=== PATIENT | female | born 1985 | race Caucasian/White ===

== ENCOUNTER 2017-08-25 10:10 | Inpatient (IN) | payer MEDICAID ==
[2017-08-25] MEDS ORDERED: ceFAZolin IV 2 gm in Dextrose 1 GM/50 ML BAG IVPB ONE (10:49)
[2017-08-25] MEDS ORDERED: Lactated Ringer's 1,000 ML IV SCH (11:00)
[2017-08-25] MEDS ORDERED: Oxytocin 30 UNIT 30 UNITS/500 ML BAG IV SCH (11:00)
[2017-08-25 11:49] LABS: BASO % 0.3 % (0.0-2.0); EOS # 0.1 K/uL (0.0-0.7); HEMOGLOBIN 11.6 g/dL (11.0-16.0); LYMPH # 1.9 K/uL (1.0-4.3); LYMPH % 16.5 % (20.0-40.0); MEAN CORPUSCULAR HEMOGLOBIN 28.4 pg (27.0-31.0); MEAN PLATELET VOLUME 11.4 fL (7.2-11.7); MONO # 0.6 K/uL (0.0-0.8); MONO % 5.5 % (0.0-10.0); NEUT # 8.8 K/uL (1.8-7.0); NEUT % 76.7 % (50.0-75.0); RBC 4.09 Mil/uL (3.80-5.20); RED CELL DISTRIBUTION WIDTH 13.9 % (11.5-14.5); WHITE BLOOD COUNT 11.4 K/uL (4.8-10.8)
[2017-08-25 11:50] LABS: MEAN CELL VOLUME 83.5 fL (81.0-99.0)
[2017-08-25 11:55] LABS: SQUAMOUS EPITHIAL 11 /hpf (0-5); URINE BACTERIA OCC (<OCC); URINE BILIRUBIN NEGATIVE (NEGATIVE); URINE BLOOD 1+ (NEGATIVE); URINE CLARITY Hazy (Clear); URINE COLOR Yellow (YELLOW); URINE GLUCOSE (UA) NORMAL (Normal); URINE LEUKOCYTE ESTERASE NEG Leu/uL (Negative); URINE PROTEIN NEGATIVE (NEGATIVE); URINE UROBILINOGEN NORMAL mg/dL (0.2-1.0)
[2017-08-25] MEDS ORDERED: Vancomycin 1 gm/NS 200 ml 1 GM/200 ML BAG IVPB ONE ×2 (12:00→13:00)
[2017-08-25 12:01] LABS: ALB/GLOB RATIO 1.1 (1.0-2.1); ALBUMIN 3.5 g/dL (3.5-5.0); ALT/SGPT 15 U/L (9-52); AST/SGOT 23 U/L (14-36); BLOOD UREA NITROGEN 7 mg/dL (7-17); CALCIUM 8.8 mg/dl (8.6-10.4); GFR AFRICAN-AMERICAN > 60; GFR NON-AFRICAN AMERICAN > 60
[2017-08-25] MEDS ORDERED: Oxytocin 30 UNIT 30 UNITS/500 ML BAG IV ONE (12:32)
[2017-08-25] MEDS ORDERED: Lidocaine 1% MPF (30 ml) Inj ONE (13:21)
--- NOTE | 2017-08-25 14:15 | OBDS ---
MATERNAL INFORMATION Estimated Blood Loss (ml): 300 Provider Comments: of a female infant.body and shoulders delivered without difficulty.cord clamp ed and cut.cord blood collected.placenta sponraneously delivered.first degree perineal laceration and left labial laceration repaired with 2 -0 chromic.Fundus firm.patient stable LABOR SUMMARY EDC: 09/14/2017 00:00 No. Babies in Womb: 1 LABOR INFORMATION Group B Beta Strep: Negative MEMBRANES Membranes Rupture Method: Artificial Rupture of Membranes: 08/25/2017 13:19 Length of Rupture (hrs): 0.25 Amniotic Fluid Color: Clear Amniotic Fluid Amount: Moderate Amniotic Fluid Odor: Normal STAGES OF LABOR Stage 3 hrs: 0 Stage 3 min: 6 VAGINAL DELIVERY Episiotomy: None Laceration Extension: First Degree Laceration Type: Perineal Other Laceration: Left labial Laceration Repair: Yes Laceration Repair Note: first degree perineal laceration and left labial laceration reapired with2 - 0c hromic Sponge Count Correct: Yes; Vaginal Sweep Performed Sharps Count Correct: Yes BABY A INFORMATION Delivery Date/Time: 08/25/2017 13:34 Method of Delivery: Vaginal Born in Route : No : N/A Forceps: N/A Vacuum Extraction: N/A Shoulder Dystocia : No SHOULDER DYSTOCIA BABY A Delivery Date/Time: 08/25/2017 13:34 PRESENTATION/POSITION BABY A Presentation: Cephalic Cephalic Presentation: Vertex Vertex Position: Left Occipital Anterior Breech Presentation: N/A PLACENTA INFORMATION BABY A Placenta Delivery Time : 08/25/2017 13:40 Placenta Method of Delivery: Spontaneous Placenta Status: Delivered SCORES BABY A Heart Rate 1 min: >100 bpm Resp Effort 1 min: Good Cry Reflex Irritability 1 min: Cough or Sneeze or Pulls Away Muscle Tone 1 min: Active Motion Color 1 min: Body [place] Walk, Extremities Blue Resuscitation Effort 1 min: Tactile Stimulation SCORE 1 MIN: 9 Heart Rate 5 min: >100 bpm Resp Effort 5 min: Good Cry Reflex Irritability 5 min: Cough or Sneeze or Pulls Away Muscle Tone 5 min: Active Motion Color 5 min: Body [place] Walk, Extremities Blue Resuscitation Effort 5 min: Tactile Stimulation SCORE 5 MIN: 9 INFANT INFORMATION BABY A Gestational Age at Delivery: 37.1 Gestational Status: Term Outcome : Liveborn Condition : Stable Sex: Female IDENTIFICATION/MEDS BABY A ID Band Number: [id number] ID Band Location: Left Leg; Left Arm Sensor Applied: Yes Sensor Number: [id number] Sensor Location : Cord Clamp WEIGHT/LENGTH BABY A Birthweight (gms): 3620 Infant Weight (lb): 8 Infant Weight (oz): 0 Infant Length Inches: 20.00 Length cms: 50.8 CORD INFORMATION BABY A No. Cord Vessels: 3 Nuchal Cord : N/A Nuchal Cord Other: N/A True Knot: N/A Cord pH Baby Arterial: N/A Cord pH Baby Venous: N/A Cord Blood Taken: Yes Banking/Donate Info: N/A Suction: Mouth; Nose ASSESSMENT BABY A Complications: Multiple Variable Decels Physical Findings at Delivery: Within Normal Limits Respirations: Appears Normal Warp Scouring Vat Tender/ALS Called : No Care By: Viri Conn RN _ Viri Brown RN Transferred To: Remains with Mother
--- NOTE | 2017-08-25 14:15 | OBADHP ---
Datetime: 08/25/2017 11:06 Admit Comment, IP Provider: CC: Abdominal pain HPI: 32 yo F presents at 40w6d complaining of abdominal pain since 0700 today and leakage of fluid since 2 days ago. She reports that this morning, she started having contractions, every 5 mi nutes, which have continued until presentation. She also reports that she started leaking clear fluid 2 days ago, intermittently, enough to wet her underwear. She also reports intermittent vaginal bleed ing for the past day. She reports normal movements. She denies fever, chills, chest pain, short ness of breath, urinary symptoms. Does admit to headache and nausea. Denies blurry vision, epigastric pain. PMH: Denies PSH: Denies FHx: Mother and father alive, healthy Soc: Denies tobacco, alcohol, or illicits. Homemaker, lives with , son, and mother in law All: Penicillin (urticaria, shortness of breath, throat swelling) OB Hx: 1. 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: [facility] 16 x monthly x 4d No history of abnormal pap smears Denies history of fibroids, polyps, cysts, or STIs VS: 114/62, 83 Gen: In mild distress; AAOx3 CV: RRR, +S1, +S2 Pulm: CTA b/l Abd: Soft, nontender, gravid uterus Ext: Warm, no calf tenderness A/P 32 yo F at 40w6d presents with contractions and leakage of fluid; bulging membranes on exam, nitrazine positive, likely high rupture 2 days ago - Admit to L_D - Start IV Abx for GBS prophylaxis; patient has severe penicillin allergy; Vanc 1gm Q12 until deli very - Start pitocin to augment labor - TOCO and EFM - Admission labs - NPO - IVF - Plan for vaginal delivery - Plan discussed with Dr. Demarco Horvath DO PGY1 agree with above Pelvic Type - PN: Adequate Extremities - PN: Normal Abdomen - PN: Normal Back - PN: Normal Lungs - PN: Normal Heart - PN: Normal Neurologic - PN: Normal General - PN: Normal FHR - Baseline A Provider: 140 Comments, ACOG Physical Exam: speculum exam no pooling; nitrazine positive Gestation - Est Wks by US: 40.9 Pool Provider: Positive Nitrazine Provider: Positive Vital Signs Provider: Reviewed; Within Normal Limits IP Chief Complaint: Uterine contractions; Suspected ruptured membranes; Vaginal bleeding NICHD Variability Prov Fetus A: Moderate 6-25bpm NICHD Accel Fetus A IP Provider: [id number] (Annotations: Data stored by CPN on behalf of user) FHR Category Provider Fetus A: Category I NICHD Decel Fetus A IP Provider: None Dilatation, Provider: 4 Effacement, Provider: 70 Station, Provider: -2 Genitourinary Exam: Normal DTRs - PN: Normal EGA AdmitDate IP: 37.1 IP Adm Impression: Term, intrauterine ; Active labor; Ruptured Membranes IP Admit Plan: Admit to unit; Initiate labor induction protocol
[2017-08-25] MEDS ORDERED: Measles, Mumps, and Rubella 0.5 ML VIAL SC ONE (16:22)
[2017-08-25] MEDS ORDERED: Oxycodone/Acetaminophen 5/325 mg Tab PO PRN ×2 (16:22)
[2017-08-25] MEDS ORDERED: Tdap Vaccine 0.5 ml Vial (10-64 yrs) IM ONE (16:22)
[2017-08-25] MEDS: Benzocaine/Menthol 20%-0.5% Topical Spray (60 ml) TOP PRN (18:51)
[2017-08-26] MEDS ORDERED: Vancomycin 1 gm/NS 200 ml 1 GM/200 ML BAG IVPB SCH (01:00)
[2017-08-26 08:20] LABS: BASO % 0.3 % (0.0-2.0); EOS # 0.2 K/uL (0.0-0.7); EOS % 1.5 % (0.0-4.0); HEMOGLOBIN 11.1 g/dL (11.0-16.0); LYMPH # 2.5 K/uL (1.0-4.3); LYMPH % 16.4 % (20.0-40.0); MEAN CELL VOLUME 83.4 fL (81.0-99.0); MEAN CORPUSCULAR HEMOGLOBIN 28.4 pg (27.0-31.0); MEAN CORPUSCULAR HGB CONC 34.1 g/dL (33.0-37.0); MEAN PLATELET VOLUME 11.2 fL (7.2-11.7); MONO % 6.4 % (0.0-10.0); NEUT # 11.6 K/uL (1.8-7.0); NEUT % 75.4 % (50.0-75.0); RBC 3.92 Mil/uL (3.80-5.20); RED CELL DISTRIBUTION WIDTH 14.3 % (11.5-14.5); WHITE BLOOD COUNT 15.4 K/uL (4.8-10.8)
[2017-08-26] MEDS: Multiple Vitamins Tab PO SCH (09:39)
--- NOTE | 2017-08-26 17:58 | OBPPN ---
Datetime: 08/26/2017 08:10 PP Pain Prov: Within normal limits PP Nausea Prov: Denies PP Flatus Prov: Yes PP BM Prov: No PP Impression Prov: Normal progression PP Plan Prov: Continue present management PP Progress Note Prov: Patient seen and examined at bedside. Per nursing staff, no acute events over night. Patient reports pain is well controlled with current regimen. Patient is ambulating around the room without difficulty. Breast and bottle feeding. Passing flatus, but no bowel movement yet. Urina ting without difficulty. Tolerating regular diet, without nausea or vomiting. Denies fever, chills, c hest pain, shortness of breath. Lochia is moderate. VS: 94/62, 100, 97.2 Gen: NAD, AAOx3 CV: RRR, +S1, +S2 Pulm: CTA b/l Abd: Soft, appriopriately tender, no rebound/guarding/rigidity/distension, uterus firm, at level o f umbilicus Ext: Warm, no calf tenderness Labs: Wbc 11.4 Hgb 11.6 Plt 142 A/P: 32 yo F A/P 32 yo F at 40w6d who initially presented with contractions and leakage of fluid x2d no w s/p PPD#1 presents with contractions and leakage of fluid - Pain control; motrin and percocet - Continue regular diet - Continue PO Iron - Discontinue antibiotics - Continue colace - Encourage ambulation and hydration - Encourage IS use - Encourage - Continue routine management - Anticipate discharge tomorrow - Plan discussed with Dr. Phil Horvath DO PGY1 IP PP Procedures: None Vital Signs Provider PP: Reviewed; Within Normal Limits
[2017-08-27 00:09] VITALS: TEMP 97.1
[2017-08-27] MEDS ORDERED: Influenza Vaccine 60 mcg/0.5 mL SYR (4YR UP) IM ONE (07:43)
--- NOTE | 2017-08-27 08:06 | OBDCSUM ---
Datetime: 08/27/2017 08:04 Discharged to, Provider: Home Follow up at, Provider: zohreh yu Disch Instr Diet: Regular Discharge Instructions, Provider: Routine instructions given Discharge Diagnosis, Provider: Term Delivered Discharge Time: 08/27/2017 08:05 Follow up in weeks, Provider: 6 weeks Disch Activity Restrictions: No exercising; No lifting; No sexual activity; Nothing in vagina - Inte rcourse, tampons, douche Discharge Comment, Provider: go to er if you have feevr, severe pain, heavy bleeidng or any other pr oblems Discharge Diagnosis Prov Other: s/p vaginal delivery
--- NOTE | 2017-08-27 08:06 | OBPPN ---
Datetime: 08/27/2017 08:03 PP Pain Prov: Within normal limits PP Nausea Prov: Denies PP Flatus Prov: Yes PP Breasts Prov: Normal PP Heart Prov: Normal PP Lungs Prov: Normal PP Abdomen/Uterus Prov: Normal PP Lochia Prov: Normal PP Vulva/Perineum Prov: Normal PP CVA Tenderness Prov: Normal PP C/S Incision Prov: Normal PP Progress Prov: Normal PP Impression Prov: Normal progression PP Plan Prov: Continue present management PP Progress Note Prov: S-patient states that her pain is well controlled.bleeding minimal.denies malik sea, vomiting, headache, chest pain, shortness of breath, numbness or tingling in handsa nd feet O-VSS Afebrile Fundus firm and below umbilicus extremities no calf tenderness A/P Patient s/p vaginal delivery PPD 2 doing well -discharge today -follow up in clinic in 6 weeks Vital Signs Provider PP: Reviewed; Within Normal Limits
[2017-08-27 08:23] VITALS: BP 105/66; PULSE 70; RESP 18; O2SAT 99
[2017-08-27] MEDS: Benzocaine/Menthol 20%-0.5% Topical Spray (60 ml) TOP PRN (09:12)
[2017-08-27] MEDS: Multiple Vitamins Tab PO SCH (09:12)
== END 2017-08-27 10:43 | disposition home or self-care (01) | DRG 373 ==
LOC: C.EROB 10:10 → C.4D 10:43 → C.4M 16:00
PROVIDERS: ADMIT Student in an Organized Health Care Education/Training Program; ATTEND Student in an Organized Health Care Education/Training Program
PROC: 10E0XZZ Delivery of Products of Conception, External Approach (ICD-10-PCS; principal; 2017-08-25)
PROC: 0HQ9XZZ Repair Perineum Skin, External Approach (ICD-10-PCS; 2017-08-25)
DX: O76 Abnormality in fetal heart rate and rhythm complicating labor and delivery (principal); O70.0 First degree perineal laceration during delivery; Z37.0 Single live birth; O75.89 Other specified complications of labor and delivery; Z88.0 Allergy status to penicillin; Z3A.37 37 weeks gestation of pregnancy

== ENCOUNTER 2018-08-20 08:27 | Emergency (ER) | payer SELFPAY ==
[2018-08-20 08:32] VITALS: BMI 22.6
[2018-08-20 09:22] LABS: HCG,QUALITATIVE URINE NEGATIVE (NEGATIVE)
[2018-08-20 09:35] LABS: SQUAMOUS EPITHIAL < 1 /hpf (0-5); URINE BACTERIA RARE (<OCC); URINE BILIRUBIN NEGATIVE (NEGATIVE); URINE BLOOD 2+ (NEGATIVE); URINE CLARITY Clear (Clear); URINE COLOR Yellow (YELLOW); URINE GLUCOSE (UA) NORMAL (Normal); URINE LEUKOCYTE ESTERASE 1+ Leu/uL (Negative); URINE PROTEIN NEGATIVE (NEGATIVE); URINE UROBILINOGEN NORMAL mg/dL (0.2-1.0)
--- NOTE | 2018-08-20 10:13 | C.PDOC ---
History Of Present Illness 33 years old female presents to ED for complaints of right sided neck pain and swelling that began 3 days ago after her child kicked her on the neck. Patient also complaints of dysuria that began 2 days ago. Patient reports taking Tylenol with no improvement. Denies fever, back pain, or any other physical complaints. Time Seen by Provider: 08/20/18 08:39 Chief Complaint (Nursing): ENT Problem History Per: Patient History/Exam Limitations: no limitations Onset/Duration Of Symptoms: Days Current Symptoms Are (Timing): Still Present Recent travel outside of the [place]: No Past Medical History Reviewed: Historical Data, Nursing Documentation, Vital Signs Vital Signs: Last Vital Signs Temp 98.7 F 08/20/18 08:32 Pulse 78 08/20/18 08:32 Resp 18 08/20/18 08:32 BP 105/70 08/20/18 08:32 Pulse Ox 100 08/20/18 08:32 - Medical History PMH: No Chronic Diseases Denies: Depression, Diabetes, HTN Surgical History: No Surg Hx - [facility] Procedures DELIVERY OF PRODUCTS OF CONCEPTION, EXTERNAL APPROACH (08/25/17) REPAIR PERINEUM SKIN, EXTERNAL APPROACH (08/25/17) Family History: States: Unknown Family Hx - Social History Hx Alcohol Use: No Hx Substance Use: No - Immunization History Hx Tetanus Toxoid Vaccination: No Hx Influenza Vaccination: No Hx Pneumococcal Vaccination: No Review Of Systems Except As Marked, All Systems Reviewed And Found Negative. Constitutional: Negative for: Fever, Chills Gastrointestinal: Negative for: Nausea, Vomiting, Abdominal Pain, Diarrhea Genitourinary: Positive for: Dysuria. Negative for: Hematuria Musculoskeletal: Positive for: Neck Pain (right sided ) Skin: Negative for: Rash Neurological: Negative for: Weakness, Numbness Physical Exam - Physical Exam Appears: Non-toxic, No Acute Distress Skin: Normal Color, Warm, Dry, No Rash Head: Atraumatic, Normacephalic Eye(s): bilateral: Normal Inspection, PERRL, EOMI Nose: Normal, No Discharge Oral Mucosa: Moist Throat: Normal, No Erythema, No Exudate, No Drooling, No Mass Neck: Normal ROM, Other (Swelling and tenderness to right anterior cervical area ) Chest: Symmetrical, No Tenderness Cardiovascular: Rhythm Regular, No Murmur Respiratory: Normal Breath Sounds, No Rales, No Rhonchi, No Wheezing Gastrointestinal/Abdominal: Bowel Sounds (Active ), Soft, No Tenderness, No Guarding, No Rebound Back: Normal Inspection, No CVA Tenderness Extremity: Normal ROM Extremity: Bilateral: Atraumatic, Normal Color And Temperature, Normal ROM Pulses: Left Carotid: Normal, Right Carotid: Normal Neurological/Psych: Oriented x3, Normal Speech, Normal Motor, Normal Sensation, Normal Reflexes Gait: Steady ED Course And Treatment - Laboratory Results Lab Results: Urine Color Yellow (YELLOW) 08/20/18 09:13 Urine Clarity Clear (Clear) 08/20/18 09:13 Urine pH 8.0 (5.0-8.0) 08/20/18 09:13 Ur Specific Willard 1.004 (1.003-1.030) 08/20/18 09:13 Urine Protein Negative mg/dL (NEGATIVE) 08/20/18 09:13 Urine Glucose (UA) Normal mg/dL (Normal) 08/20/18 09:13 Urine Ketones Negative mg/dL (NEGATIVE) 08/20/18 09:13 Urine Blood 2+ (NEGATIVE) H 08/20/18 09:13 Urine Nitrate Negative (NEGATIVE) 08/20/18 09:13 Urine Bilirubin Negative (NEGATIVE) 08/20/18 09:13 Urine Urobilinogen Normal mg/dL (0.2-1.0) 08/20/18 09:13 Ur Leukocyte Esterase 1+ Ananya/uL (Negative) H 08/20/18 09:13 Urine WBC (Auto) 9 /hpf (0-5) H 08/20/18 09:13 Urine RBC (Auto) 33 /hpf (0-3) H 08/20/18 09:13 Ur Squamous Epith Cells < 1 /hpf (0-5) 08/20/18 09:13 Urine Bacteria Rare (<OCC) 08/20/18 09:13 Urine HCG, Qual Negative (NEGATIVE) 08/20/18 09:13 Urine HCG, Qual Negative (NEGATIVE) 08/20/18 09:13 O2 Sat by Pulse Oximetry: 100 (RA) Pulse Ox Interpretation: Normal - CT Scan/US Neck Soft Tissue CT Other Rad Studies (CT/US): Read By Radiologist, Radiology Report Reviewed CT/US Interpretation: Date of service: 08/20/2018. PROCEDURE: CT NECK WITHOUT CONTRAST. HISTORY: Kicked left anterior neck, swelling. COMPARISON: None available. TECHNIQUE: CT of the neck without intravenous contrast. Coronal and sagittal reformats generated. Radiation dose: Total exam DLP = 338.81 mGy-cm. This CT exam was performed using one or more of the following dose reduction techniques: Automated exposure control, adjustment of the mA and/or kV according to patient size, and/or use of iterative reconstruction technique. FINDINGS: NASOPHARYNX: Unremarkable. SUPRAHYOID NECK: Unremarkable oropharynx, oral cavity, parapharyngeal space and retropharyngeal space. INFRAHYOID NECK: Unremarkable larynx, hypopharynx, and supraglottic space. Vocal cords intact. MASS: None. GLANDS: Parotid and submandibular glands unremarkable. The thyroid gland is heterogeneous with focal areas of low attenuation. Recommend nonemergent follow-up thyroid ultrasound further evaluation. LYMPH NODES: Few small bilateral cervical lymph nodes are present. CERVICAL SPINE: No fracture or focal lesion. OTHER FINDINGS: None. IMPRESSION: No evidence of acute posttraumatic sequela. Low-attenuation foci scattered throughout the thyroid gland assess for which a nonemergent thyroid ultrasound follow-up is recommended. Medical Decision Making Medical Decision Making: Plan: * Motrin * Urinalysis * Urine Culture * CT Neck Soft Tissue On re-exam, the patient reports improvement of symptoms, Lungs are CTA, heart is RRR, abdomen is soft, non-tender and the patient is tolerating PO well. Pt is ambulatory in the ED with steady gait. Follow up with the medical doctor within 1-2 days. Return if worsened. Disposition - Disposition Referrals: [facility] at [facility] [Outside] Disposition: HOME/ ROUTINE Disposition Time: 10:36 Condition: GOOD Additional Instructions: Follow up with the medical doctor within 1-2 days. Return if worsened. 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 - Scribe Statement The provider has reviewed the documentation as recorded by the Patel Boss All medical record entries made by the Scribe were at my direction and personally dictated by me. I have reviewed the chart and agree that the record accurately reflects my personal performance of the history, physical exam, medical decision making, and the department course for this patient. I have also personally directed, reviewed, and agree with the discharge instructions and disposition.
--- NOTE | 2018-08-20 10:19 | CT ---
Date of service: 08/20/2018 PROCEDURE: CT NECK WITHOUT CONTRAST HISTORY: Kicked left anterior neck, swelling COMPARISON: None available. TECHNIQUE: CT of the neck without intravenous contrast. Coronal and sagittal reformats generated. Radiation dose: Total exam DLP = 338.81 mGy-cm. This CT exam was performed using one or more of the following dose reduction techniques: Automated exposure control, adjustment of the mA and/or kV according to patient size, and/or use of iterative reconstruction technique. FINDINGS: NASOPHARYNX: Unremarkable. SUPRAHYOID NECK: Unremarkable oropharynx, oral cavity, parapharyngeal space and retropharyngeal space. INFRAHYOID NECK: Unremarkable larynx, hypopharynx, and supraglottic space. Vocal cords intact. MASS: None. GLANDS: Parotid and submandibular glands unremarkable. The thyroid gland is heterogeneous with focal areas of low attenuation. Recommend nonemergent follow-up thyroid ultrasound further evaluation LYMPH NODES: Few small bilateral cervical lymph nodes are present. CERVICAL SPINE: No fracture or focal lesion. OTHER FINDINGS: None. IMPRESSION: No evidence of acute posttraumatic sequela. Low-attenuation foci scattered throughout the thyroid gland assess for which a nonemergent thyroid ultrasound follow-up is recommended.
[2018-08-20 10:55] VITALS: BP 102/68; PULSE 77; RESP 14; TEMP 98.6
[2018-08-23 09:22] VITALS: O2SAT 100
== END 2018-08-20 11:30 | disposition home or self-care (01) ==
LOC: C.ER 08:27
DX: N39.0 Urinary tract infection, site not specified (principal); S13.4XXA Sprain of ligaments of cervical spine, initial encounter; W50.1XXA Accidental kick by another person, initial encounter

== ENCOUNTER 2018-10-25 20:55 | Emergency (ER) | payer SELFPAY ==
[2018-10-25 20:56] VITALS: BMI 22.6
[2018-10-25 21:02] VITALS: RESP 20; O2SAT 98
--- NOTE | 2018-10-25 21:39 | C.PDOC ---
History Of Present Illness 33-year-old female presents to the ED for evaluation of right wrist pain which began two days ago. Patient states she woke up with pain to the dorsal aspect of her wrist this morning. She rates the pain 6/10 in severity and has not taken anything for the pain. Patient denies trauma/injury to the site or extremity numbness/weakness. She states she is currently unemployed but mentions performing many household tasks. Chief Complaint (Nursing): Upper Extremity Problem/Injury History Per: Patient History/Exam Limitations: no limitations Onset/Duration Of Symptoms: Days (2) Current Symptoms Are (Timing): Still Present Quality: "Pain" Additional History Per: Patient Past Medical History Reviewed: Historical Data, Nursing Documentation, Vital Signs Vital Signs: Last Vital Signs Temp 98.4 F 10/25/18 20:59 Pulse 79 10/25/18 20:59 Resp 20 10/25/18 20:59 BP 133/82 10/25/18 20:59 Pulse Ox 98 10/25/18 20:59 Primary Care Provider: FAMILY PROVIDER,NO - Medical History PMH: Denies: Depression, Diabetes, HTN Surgical History: No Surg Hx - [facility] Procedures DELIVERY OF PRODUCTS OF CONCEPTION, EXTERNAL APPROACH (08/25/17) REPAIR PERINEUM SKIN, EXTERNAL APPROACH (08/25/17) Family History: States: Unknown Family Hx - Social History Hx Alcohol Use: No Hx Substance Use: No - Immunization History Hx Tetanus Toxoid Vaccination: No Hx Influenza Vaccination: No Hx Pneumococcal Vaccination: No Review Of Systems Constitutional: Negative for: Weakness Musculoskeletal: Positive for: Other (right wrist pain ) Skin: Negative for: Rash, Bruising Neurological: Negative for: Numbness Physical Exam - Physical Exam Appears: Non-toxic, No Acute Distress Skin: Normal Color, Warm, Dry Head: Atraumatic, Normacephalic Eye(s): bilateral: Normal Inspection Chest: Symmetrical Cardiovascular: Rhythm Regular Respiratory: Normal Breath Sounds, No Wheezing Extremity: Normal ROM (right wrist ), Tenderness (right wrist ), Capillary Refill (less than 2 seconds ), No Deformity, No Swelling, Other (negative tinel and phalen test ) Extremity: Bilateral: Atraumatic Pulses: Left Radial: Normal, Right Radial: Normal Neurological/Psych: Oriented x3, Normal Speech, Normal Cognition, Normal Motor, Normal Sensation ED Course And Treatment O2 Sat by Pulse Oximetry: 98 (on RA) Pulse Ox Interpretation: Normal Medical Decision Making Medical Decision Making: Impression: 33 year old female with right wrist pain Plan: * Motrin PO given. On reassessment, patient is resting comfortably, showing no signs of distress and is stable for discharge. Patient advised to follow up with her PMD to possibly undergo MRI for further evaluation if pain persists. Disposition Counseled Patient/Family Regarding: Diagnosis, Need For Followup, Rx Given - Disposition Referrals: [facility] at [facility] [Outside] Orthopedic Clinic at [Outside] Disposition: HOME/ ROUTINE Disposition Time: 22:20 Condition: IMPROVED Additional Instructions: Continue Motrin as needed for pain Rest, Ice, Compression, and Elevation Follow up in Ortho clinic for further evaluation- MRI may be warranted Return to the ED if symptoms worsen Prescriptions: Ibuprofen [Motrin] 600 mg PO Q8 PRN #30 tab PRN Reason: Pain, Moderate (4-7) Instructions: Wrist Sprain (DC), Common Wrist Injuries (DC) Forms: [employer] (Bahamian), [employer] (Finnish) Print Language: MONGOLIAN - Clinical Impression Clinical Impression: Right wrist pain - 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 - Scribe Statement The provider has reviewed the documentation as recorded by the Scribe (Esther Tello) All medical record entries made by the Scribe were at my direction and personally dictated by me. I have reviewed the chart and agree that the record accurately reflects my personal performance of the history, physical exam, medical decision making, and the department course for this patient. I have also personally directed, reviewed, and agree with the discharge instructions and disposition.
--- NOTE | 2018-10-25 21:58 | C.PDOC ---
Chief Complaint (Nursing): Upper Extremity Problem/Injury Past Medical History Vital Signs: Last Vital Signs Temp 98.4 F 10/25/18 20:59 Pulse 79 10/25/18 20:59 Resp 20 10/25/18 20:59 BP 133/82 10/25/18 20:59 Pulse Ox 98 10/25/18 20:59 Primary Care Provider: FAMILY PROVIDER,NO - Medical History PMH: Denies: Depression, Diabetes, HTN - [facility] Procedures DELIVERY OF PRODUCTS OF CONCEPTION, EXTERNAL APPROACH (08/25/17) REPAIR PERINEUM SKIN, EXTERNAL APPROACH (08/25/17) Family History: States: Unknown Family Hx - Social History Hx Alcohol Use: No Hx Substance Use: No - Immunization History Hx Tetanus Toxoid Vaccination: No Hx Influenza Vaccination: No Hx Pneumococcal Vaccination: No ED Course And Treatment O2 Sat by Pulse Oximetry: 98 Disposition Counseled Patient/Family Regarding: Diagnosis, Need For Followup, Rx Given - Disposition Referrals: [facility] at [facility] [Outside] Orthopedic Clinic at [Outside] Disposition: HOME/ ROUTINE Disposition Time: 21:58 Condition: IMPROVED Additional Instructions: Continue Motrin as needed for pain Rest, Ice, Compression, and Elevation Follow up in Ortho clinic for further evaluation- MRI may be warranted Return to the ED if symptoms worsen Prescriptions: Ibuprofen [Motrin] 600 mg PO Q8 PRN #30 tab PRN Reason: Pain, Moderate (4-7) Instructions: Common Wrist Injuries (DC), Wrist Sprain (DC) Forms: [employer] (Italian), [employer] (Gabonese) Print Language: TUNISIAN - Clinical Impression Clinical Impression: Right wrist pain
[2018-10-25 22:26] VITALS: BP 130/80; PULSE 78; TEMP 98
== END 2018-10-25 22:25 | disposition home or self-care (01) ==
LOC: C.ER 20:55
DX: M25.531 Pain in right wrist (principal)